=== PATIENT | female | born 1960 | race Hispanic/Latino ===

== ENCOUNTER 2017-08-03 10:29 | Emergency (ER) | payer OTHER ==
[~2017-08-03] VITALS: Ht 157.5 cm; Wt 100.0 kg
[~2017-08-03 10:29] MED LIST: PLAVIX75 MG PO; XARELTO20 MG PO
[2017-08-03 12:52] LABS: CARBON DIOXIDE (BICARBONATE) 32.9 MEQ/L (20-31)
[2017-08-03 12:57] LABS: APPEARANCE CLEAR ((CLEAR)); BILIRUBIN NEGATIVE; BLOOD NEGATIVE; COLOR YELLOW ((YELLOW)); GLUCOSE (STRIP) NEGATIVE; KETONES NEGATIVE; LEUKOCYTES NEGATIVE; NITRITE NEGATIVE; PROTEIN (STRIP) NEGATIVE; SPECIFIC GRAVITY 1.021 (1.000-1.030); UCUL ADDED? NO; UROBILINOGEN 0.2 MG/DL (0.2-1.0)
[2017-08-03] MEDS ORDERED: MOTRIN800 MG PO (14:13)
[2017-08-03] MEDS ORDERED: FLEXERIL10 MG PO (14:13)
[2017-08-03 14:25] VITALS: BP 140/79
== END 2017-08-03 14:27 | disposition home or self-care (01) ==
LOC: EME 10:29
PROVIDERS: Nurse Practitioner Family
DX: M62.830 Muscle spasm of back (principal)
CPT/HCPCS: 72040; 72100; 81003; 82803; J1885